=== PATIENT | female | born 1985 | race Caucasian/White ===

== ENCOUNTER 2021-10-26 13:54 | Day surgery (SDC) | payer OTHER ==
[2021-10-26 14:37] LABS: #Basophils 0.1 10x3/uL (0.0-0.2); #Eosinphils 0.1 10x3/uL (0.0-0.5); %Basophils 0.6 % (0.0-2.0); %Eosinophils 1.1 % (0.0-6.0); %Lymphocytes 15.6 % (18.0-47.0); %Monocytes 8.7 % (0.0-10.0); %Neutrophils 73.2 % (40.0-75.0); Hemoglobin 10.9 g/dL (12.0-15.5); Mean Corpuscular HGB CONC 33.4 g/dL (32.0-36.0); Mean Corpuscular Hemoglobin 31.9 pg (27.0-33.0); Mean Corpuscular Volume 95.3 fl (81.6-98.3); Mean Platelet Volume 9.4 fl (7.4-10.4); Platelet Count 234 10x3/uL (150-450); RBC Distribution Width 13.6 % (11.5-14.5); Red Blood Cell (RBC) Count 3.42 10x6/uL (3.90-5.03); White Blood Cell (WBC) Count 10.9 10x3/uL (3.5-10.5)
[2021-10-26 14:49] LABS: ALT (SGPT) 14 U/L (8-55); AST (SGOT) 15 U/L (5-34); Albumin 3.4 g/dL (3.5-5.0); Alkaline Phosphatase 78 U/L (40-110); Anion Gap 13 mmol/L (10-20); BUN (Urea Nitrogen) 7 mg/dL (7.0-18.7); Bilirubin, Total 0.3 mg/dL (0.2-1.2); Calc. Creatinine Clearance 0 mL/min (70-130); Calcium 9.2 mg/dL (7.8-10.44); Carbon Dioxide 21 mmol/L (22-29); Chloride 105 mmol/L (98-107); Globulin 3.2 g/dL (2.4-3.5); Glucose 80 mg/dL (70-105); Potassium 3.7 mmol/L (3.5-5.1); Protein, Total 6.6 g/dL (6.0-8.3); Sodium 135 mmol/L (136-145)
[2021-10-26 17:24] LABS: Bilirubin Neg (Negative); Blood, Urine Negative (Negative); Clarity Clear (Clear); Glucose, Urine (Dipstick) Normal (Negative); Ketone, Urine Negative (Negative); Leukocyte 500 (Negative); Nitrite Negative (Negative); Protein, Urine (Dipstick) Negative (Neg-Trace); Specific Gravity, Urine 1.015 (1.002-1.036); Urobilinogen Normal mg/dL (Less than 2)
[2021-10-26 17:32] LABS: Bacteria/HPF 2+ HPF (None Seen); RBC/HPF 0-3 HPF (0-3)
[2021-10-26 17:53] LABS: SARS-CoV-2 NAA Rapid Test Not Detected (NotDetected)
[2021-10-26] MEDS ORDERED: hydrALAZINE 20 MG/ML VIAL SLOW IVP PRN (19:34)
[2021-10-26 19:54] LABS: Bilirubin Neg (Negative); Blood, Urine 10 (Negative); Clarity Clear (Clear); Glucose, Urine (Dipstick) Normal (Negative); Ketone, Urine Negative (Negative); Leukocyte Negative (Negative); Nitrite Negative (Negative); Protein, Urine (Dipstick) Negative (Neg-Trace); Specific Gravity, Urine 1.015 (1.002-1.036); Urobilinogen Normal mg/dL (Less than 2)
[2021-10-26 19:56] LABS: Urine Culture Reflex No No
[2021-10-26 20:07] LABS: Bacteria/HPF Rare-Few HPF (None Seen); Squamous Epithelial 0-3 HPF (0-3); WBC/HPF 0-3 HPF (0-3)
== END 2021-10-26 20:50 | disposition home or self-care (01) ==
LOC: CSHERS 13:54 → CSHLD/OP 13:54 → EDSTATUS 17:31 → CSHLD/OP 20:50
PROVIDERS: ATTEND Obstetrics & Gynecology
DX: O99.891 Other specified diseases and conditions complicating pregnancy (principal); R42 Dizziness and giddiness; R55 Syncope and collapse; R10.2 Pelvic and perineal pain; O09.523 Supervision of elderly multigravida, third trimester; Z3A.32 32 weeks gestation of pregnancy; Z20.822 Contact with and (suspected) exposure to COVID-19
CPT/HCPCS: 36415; 51701; 80053; 81003; 81015; 85025; 87086; 93005; 96360; 96361; 99282; U0002

== ENCOUNTER 2022-04-29 21:41 | Emergency (ER) | payer OTHER ==
[2022-04-29] MEDS ORDERED: Acetaminophen 500 MG TAB ONE (22:48)
[2022-04-29] MEDS ORDERED: Ondansetron PF 4 MG/2 ML Vial ONE (22:49)
[2022-04-30] MEDS ORDERED: Metoclopramide HCl 10 MG/2 ML VIAL ONE (00:02)
[2022-04-30] MEDS ORDERED: diphenhydrAMINE 50 MG/ML VIAL ONE (00:02)
== END 2022-04-30 01:04 | disposition home or self-care (01) ==
LOC: CSHERS 21:41
DX: U07.1 COVID-19 (principal)
CPT/HCPCS: 96361; 96365; 96375; J1200; J2405; J2765

== ENCOUNTER 2022-05-02 19:00 | Emergency (ER) | payer OTHER ==
[2022-05-02] MEDS ORDERED: Magnesium 2 GM/50 ML BAG (IN WATER) ONE (19:43)
[2022-05-02 19:51] LABS: #Eosinphils 0.1 10x3/uL (0.0-0.5); #Monocytes 0.5 10x3/uL (0.0-1.1); #Neutrophils 2.8 10x3/uL (1.5-8.4); %Basophils 0.6 % (0.0-2.0); %Lymphocytes 31.2 % (18.0-47.0); %Monocytes 9.1 % (0.0-10.0); %Neutrophils 57.1 % (40.0-75.0); Hemoglobin 12.7 g/dL (12.0-15.5); Mean Corpuscular HGB CONC 34.8 g/dL (32.0-36.0); Mean Corpuscular Hemoglobin 31.3 pg (27.0-33.0); Mean Corpuscular Volume 89.9 fl (81.6-98.3); Mean Platelet Volume 9.4 fl (7.4-10.4); Platelet Count 218 10x3/uL (150-450); RBC Distribution Width 12.5 % (11.5-14.5); Red Blood Cell (RBC) Count 4.06 10x6/uL (3.90-5.03); White Blood Cell (WBC) Count 4.9 10x3/uL (3.5-10.5)
[2022-05-02 19:56] LABS: ALT (SGPT) 28 U/L (8-55); AST (SGOT) 18 U/L (5-34); Albumin 4.5 g/dL (3.5-5.0); Alkaline Phosphatase 61 U/L (40-110); Anion Gap 12 mmol/L (10-20); BUN (Urea Nitrogen) 12 mg/dL (7.0-18.7); Bilirubin, Total 0.3 mg/dL (0.2-1.2); Calc. Creatinine Clearance 0 mL/min (70-130); Calcium 9.5 mg/dL (7.8-10.44); Carbon Dioxide 28 mmol/L (22-29); Chloride 104 mmol/L (98-107); Estimated GFR 113; Glucose 88 mg/dL (70-105); Potassium 3.9 mmol/L (3.5-5.1); Protein, Total 7.5 g/dL (6.0-8.3); Sodium 140 mmol/L (136-145)
[2022-05-02] MEDS ORDERED: diphenhydrAMINE 50 MG/ML VIAL ONE (20:00)
[2022-05-02] MEDS ORDERED: Metoclopramide HCl 10 MG/2 ML VIAL ONE (20:01)
[2022-05-02] MEDS ORDERED: Ketorolac Tromethamine 30 MG/ML VIAL ONE (20:01)
[2022-05-02 20:04] LABS: Magnesium 2.1 mg/dL (1.6-2.6)
== END 2022-05-02 22:00 | disposition home or self-care (01) ==
LOC: CSHERS 19:00
DX: E86.0 Dehydration (principal); R51.9 Headache, unspecified; R00.2 Palpitations
CPT/HCPCS: 36415; 71045; 80053; 83735; 84484; 85025; 93005; 96365; 96375; J1200; J1885; J2765; J3475

== ENCOUNTER 2023-07-21 19:58 | Emergency (ER) | payer OTHER ==
[2023-07-21 22:17] LABS: #Basophils 0.1 10x3/uL (0.0-0.2); #Eosinphils 0.2 10x3/uL (0.0-0.5); #Monocytes 0.6 10x3/uL (0.0-1.1); #Neutrophils 4.9 10x3/uL (1.5-8.4); %Basophils 0.6 % (0.0-2.0); %Eosinophils 2.4 % (0.0-6.0); %Monocytes 7.7 % (0.0-10.0); %Neutrophils 59.2 % (40.0-75.0); Hematocrit 37.8 % (34.9-44.5); Hemoglobin 12.7 g/dL (12.0-15.5); Mean Corpuscular HGB CONC 33.6 g/dL (32.0-36.0); Mean Corpuscular Hemoglobin 30.9 pg (27.0-33.0); Mean Platelet Volume 9.8 fl (7.4-10.4); Platelet Count 287 10x3/uL (150-450); RBC Distribution Width 13.2 % (11.5-14.5); Red Blood Cell (RBC) Count 4.11 10x6/uL (3.90-5.03); White Blood Cell (WBC) Count 8.3 10x3/uL (3.5-10.5)
[2023-07-21 22:28] LABS: Bilirubin Neg (Negative); Blood, Urine 250 (Negative); Clarity Slightly Cloudy (Clear); Glucose, Urine (Dipstick) Normal (Negative); Ketone, Urine 5 mg/dL (Negative); Leukocyte 100 (Negative); Nitrite Negative (Negative); Protein, Urine (Dipstick) 30 mg/dl (Neg-Trace); Urobilinogen Normal mg/dL (Less than 2)
[2023-07-21 22:34] LABS: ALT (SGPT) 13 U/L (8-55); AST (SGOT) 15 U/L (5-34); Albumin 4.2 g/dL (3.5-5.0); Alkaline Phosphatase 57 U/L (40-110); Anion Gap 13 mmol/L (10-20); BUN (Urea Nitrogen) 9 mg/dL (7.0-18.7); Bilirubin, Total Less than 0.2 mg/dL (0.2-1.2); Calc. Creatinine Clearance 0 mL/min (70-130); Calcium 9.2 mg/dL (7.8-10.44); Carbon Dioxide 25 mmol/L (22-29); Chloride 106 mmol/L (98-107); Estimated GFR 114; Globulin 3.1 g/dL (2.4-3.5); Glucose 89 mg/dL (70-105); Potassium 3.6 mmol/L (3.5-5.1); Protein, Total 7.3 g/dL (6.0-8.3); Sodium 140 mmol/L (136-145)
[2023-07-21 22:43] LABS: CAUTI Indications for Culture Acute Hematuria; RBC/HPF Greater than 50 HPF (0-3)
[2023-07-21 22:46] LABS: Bacteria/HPF Rare-Few HPF (None Seen)
[2023-07-21 22:47] LABS: Urine Culture Reflex Yes Yes
== END 2023-07-22 01:13 | disposition home or self-care (01) ==
LOC: CSHERS 19:58
DX: O20.0 Threatened abortion (principal); O09.521 Supervision of elderly multigravida, first trimester; Z3A.01 Less than 8 weeks gestation of pregnancy
CPT/HCPCS: 36415; 76817; 80053; 81001; 84702; 85025; 86900; 86901; 87086; 93005

== ENCOUNTER 2024-05-29 00:29 | Inpatient (IN) | payer OTHER ==
[2024-05-29] MEDS ORDERED: hydrALAZINE 20 MG/ML VIAL SLOW IVP PRN ×2 (01:05→02:08)
[2024-05-29] MEDS ORDERED: Diphenoxylate HCl/Atropine Tablet PO PRN (02:08)
[2024-05-29] MEDS ORDERED: Promethazine HCl 25 MG/ML VIAL IM PRN (02:08)
[2024-05-29] MEDS ORDERED: Lidocaine 1% (PF) 30 ML VIAL SC PRN (02:08)
[2024-05-29] MEDS ORDERED: Methylergonovine 0.2 MG/ML VIAL IM PRN (02:08)
[2024-05-29] MEDS ORDERED: Carboprost 250 MCG/ML AMP IM PRN (02:08)
[2024-05-29] MEDS ORDERED: Misoprostol 200 MCG TAB PR PRN (02:08)
[2024-05-29] MEDS ORDERED: Tranexamic Acid 1,000 MG/10 ML VIAL IVP PRN (02:08)
[2024-05-29] MEDS ORDERED: Ondansetron PF 4 MG/2 ML Vial IVP PRN (02:08)
[2024-05-29] MEDS ORDERED: Oxytocin 30 units/NS 500 ML 500 ML IV SCH (02:15)
[2024-05-29] MEDS: Lactated Ringer's 1,000 ML IV SCH (03:00)
[2024-05-29] MEDS: Penicillin G Potassium 5 MILL.UNITS in Sodium Chloride 0.9% 100 ML IVPB SCH (03:51)
[2024-05-29 04:28] VITALS: BMI 30.4
[2024-05-29] MEDS: Penicillin G 2.5 MILL.units 2.5 MILL.UNITS in Premix 1 BAG IVPB SCH (07:26)
[2024-05-29] MEDS: Betamet Acet/Betamet Na Ph 30 MG/5 ML VIAL IM SCH (09:47)
== END 2024-05-29 16:28 | disposition home or self-care (01) | DRG 833 ==
LOC: CSHLD/OP 00:29 → CSHLD 02:09
PROVIDERS: ADMIT Student in an Organized Health Care Education/Training Program; ATTEND Student in an Organized Health Care Education/Training Program
DX: O60.03 Preterm labor without delivery, third trimester (principal); O46.93 Antepartum hemorrhage, unspecified, third trimester; Z3A.35 35 weeks gestation of pregnancy
CPT/HCPCS: 76815; 85027; 86780; 86850; 86900; 86901; 87340; 99285; J0702; J2540; J7120

== ENCOUNTER 2024-05-29 19:13 | Inpatient (IN) | payer OTHER ==
[2024-05-29 03:00] LABS: Hematocrit 35.7 % (34.9-44.5); Hemoglobin 12.1 g/dL (12.0-15.5); Mean Corpuscular HGB CONC 33.9 g/dL (32.0-36.0); Mean Corpuscular Hemoglobin 31.2 pg (27.0-33.0); Mean Platelet Volume 10.1 fL (7.4-10.4); Platelet Count 249 10x3/uL (150-450); RBC Distribution Width 13.5 % (11.5-14.5); Red Blood Cell (RBC) Count 3.88 10x6/uL (3.90-5.03); White Blood Cell (WBC) Count 8.7 10x3/uL (3.5-10.5)
[2024-05-29 03:16] LABS: Syphilis Antibody Nonreactive (Nonreactive); Syphilis Antibody Index 0.06 S/CO (<1.00 Non-Reactive)
[2024-05-29 03:17] LABS: Hep B Surf Ag - L&D Non-Reactive S/CO (NonReactive)
[2024-05-29 19:27] VITALS: BMI 30.4
[2024-05-29 21:04] LABS: #Basophils 0.03 10x3/uL (0.0-0.2); #Monocytes 0.59 10x3/uL (0.0-1.1); #Neutrophils 9.96 10x3/uL (1.5-8.4); %Basophils 0.3 % (0.0-2.0); %Lymphocytes 8.7 % (18.0-47.0); %Monocytes 5.1 % (0.0-10.0); %Neutrophils 85.4 % (40.0-75.0); Hemoglobin 11.2 g/dL (12.0-15.5); Mean Corpuscular HGB CONC 33.9 g/dL (32.0-36.0); Mean Corpuscular Hemoglobin 31.4 pg (27.0-33.0); Mean Corpuscular Volume 92.4 fL (81.6-98.3); Mean Platelet Volume 10.2 fL (7.4-10.4); Platelet Count 250 10x3/uL (150-450); RBC Distribution Width 13.5 % (11.5-14.5); Red Blood Cell (RBC) Count 3.57 10x6/uL (3.90-5.03); White Blood Cell (WBC) Count 11.7 10x3/uL (3.5-10.5)
[2024-05-29] MEDS ORDERED: Promethazine HCl 25 MG/ML VIAL IM PRN (21:11)
[2024-05-29] MEDS ORDERED: hydrALAZINE 20 MG/ML VIAL SLOW IVP PRN (21:11)
[2024-05-29] MEDS ORDERED: Ondansetron PF 4 MG/2 ML Vial IVP PRN (21:11)
[2024-05-29] MEDS: Acetaminophen 500 MG TAB PO PRN (21:30)
[2024-05-29 22:02] LABS: Bilirubin Neg (Negative); Blood, Urine 150 (Negative); Clarity Clear (Clear); Glucose, Urine (Dipstick) Normal (Negative); Ketone, Urine 15 mg/dL (Negative); Leukocyte 25 (Negative); Nitrite Negative (Negative); Protein, Urine (Dipstick) 15 mg/dl (Neg-Trace); Urobilinogen Normal mg/dL (Less than 2)
[2024-05-29] MEDS: Betamet Acet/Betamet Na Ph 30 MG/5 ML VIAL IM SCH (22:04)
[2024-05-29] MEDS: Zolpidem Tartrate 5 MG TAB PO PRN (22:32)
[2024-05-29 22:34] LABS: Bacteria/HPF Rare-Few HPF (None Seen); CAUTI Indications for Culture Pregnancy; RBC/HPF 0-3 HPF (0-3)
[2024-05-29 22:35] LABS: Mucous/LPF 1+ LPF (<2+)
[2024-05-29 22:36] LABS: Urine Culture Reflex No No; Urine Culture Reflex Yes Yes
[2024-05-30] MEDS ORDERED: Carboprost 250 MCG/ML AMP IM PRN (08:53)
[2024-05-30] MEDS ORDERED: Methylergonovine 0.2 MG/ML VIAL IM PRN (08:53)
[2024-05-30] MEDS ORDERED: HYDROcodone/Acetaminophen 5/325 mg Tablet PO PRN (08:53)
[2024-05-30] MEDS ORDERED: hydrALAZINE 20 MG/ML VIAL SLOW IVP PRN (08:53)
[2024-05-30] MEDS ORDERED: Lidocaine 1% (PF) 30 ML VIAL SC PRN (08:53)
[2024-05-30] MEDS ORDERED: Promethazine HCl 25 MG/ML VIAL IM PRN ×2 (08:53→17:27)
[2024-05-30] MEDS ORDERED: fentaNYL 50 mcg/mL 1 mL Vial SLOW IVP PRN (08:53)
[2024-05-30] MEDS ORDERED: Diphenoxylate HCl/Atropine Tablet PO PRN (08:53)
[2024-05-30] MEDS ORDERED: Ondansetron PF 4 MG/2 ML Vial IVP PRN ×2 (08:53→17:27)
[2024-05-30] MEDS ORDERED: Misoprostol 200 MCG TAB PR PRN (08:53)
[2024-05-30] MEDS ORDERED: Oxytocin 30 units/NS 500 ML 500 ML IV SCH (09:00)
[2024-05-30] MEDS: Oxytocin 30 units/NS 500 ML 500 ML IV SCH (09:13)
[2024-05-30] MEDS: Penicillin G Potassium 5 MILL.UNITS in Sodium Chloride 0.9% 100 ML IVPB SCH (09:13)
[2024-05-30] MEDS: Penicillin G 2.5 MILL.units 2.5 MILL.UNITS in Premix 1 BAG IVPB SCH (13:24)
[2024-05-30] MEDS: fentaNYL/Ropivacaine Epidural 100 ML ONE (17:19)
[2024-05-30] MEDS ORDERED: diphenhydrAMINE 50 MG/ML VIAL IVP PRN (17:27)
[2024-05-30] MEDS ORDERED: Acetaminophen 325 MG TAB PO PRN (17:27)
[2024-05-30] MEDS ORDERED: Moisturizing Cream (Eucerin) 113 GM JAR TOP PRN (17:27)
[2024-05-30] MEDS ORDERED: Lactated Ringer's 500 ML IV PRN (17:27)
[2024-05-30] MEDS ORDERED: ePHEDrine Sulfate 50 MG/10 ML VIAL SLOW IVP PRN (17:27)
[2024-05-30] MEDS ORDERED: Naloxone HCl 0.4 mg/ml Vial IVP PRN ×2 (17:27)
[2024-05-30] MEDS ORDERED: fentaNYL 2 mcg/Ropivacaine 0.2% Epidural 100 ML CADD EPIDURAL SCH (17:30)
[2024-05-30] MEDS ORDERED: Communication Order-Pharmacy FS SCH (17:30)
[2024-05-31] MEDS: Ibuprofen 800 MG TAB PO PRN (02:03)
[2024-05-31] MEDS: Lactated Ringer's 1,000 ML IV SCH ×3 (07:28→16:15)
[2024-05-31] MEDS: Dexmedetomidine 200 MCG/2 ML VIAL ONE (07:29)
[2024-05-31] MEDS: Acetaminophen 500 MG TAB PO PRN (11:51)
[2024-05-31] MEDS: Docusate 100 MG CAP PO PRN (11:51)
[2024-05-31] MEDS ORDERED: diphenhydrAMINE 25 MG CAP PO PRN (12:58)
[2024-05-31] MEDS ORDERED: Simethicone Chewable 80 MG TAB PO PRN (12:58)
[2024-05-31] MEDS ORDERED: Acetaminophen/Codeine 30-300mg Tablet PO PRN ×2 (12:58)
[2024-05-31] MEDS: Ibuprofen 800 MG TAB PO SCH (16:13)
[2024-05-31] MEDS ORDERED: Lactated Ringer's 500 ML IV SCH (18:00)
[2024-05-31] MEDS: Preparation H Ointment 28 GM TUBE TOP PRN (21:15)
[2024-06-01 08:23] VITALS: BP 116/67; TEMP 97.9
== END 2024-06-01 12:45 | disposition home or self-care (01) | DRG 807 ==
LOC: CSHLD/OP 19:13 → CSHLD 21:11 → CSHPP 05-30 22:20
PROVIDERS: ADMIT Student in an Organized Health Care Education/Training Program; ATTEND Student in an Organized Health Care Education/Training Program
PROC: 10E0XZZ Delivery of Products of Conception, External Approach (ICD-10-PCS; principal; 2024-05-30)
PROC: 10907ZC Drainage of Amniotic Fluid, Therapeutic from Products of Conception, Via Natural or Artificial Opening (ICD-10-PCS; 2024-05-30)
DX: O36.8130 Decreased fetal movements, third trimester, not applicable or unspecified (principal); Z37.0 Single live birth; Z3A.35 35 weeks gestation of pregnancy; O67.9 Intrapartum hemorrhage, unspecified
CPT/HCPCS: 36415; 51702; 81001; 85027; 85460; 86780; 86850; 86900; 86901; 87086; 87340; 99285; J0702; J2540; J2590; J7120